=== PATIENT | female | born 1960 | race Caucasian/White ===

== ENCOUNTER → 2018-02-20 | Outpatient (CLI) | payer OTHER ==
[~2018-02-20] MED LIST: ASA81 MG; COZAAR50 MG; CRESTOR10 MG; TOPROL XL25 M1; VOLTAREN100 GM TP
== END | disposition home or self-care (01) ==
LOC: RAD 10:58
DX: M17.0 Bilateral primary osteoarthritis of knee (principal)

== ENCOUNTER 2021-05-09 11:31 | Outpatient (CLI) | payer OTHER | END 2021-05-09 11:35 | disposition home or self-care (01) | LOC: RAD 11:31 | PROVIDERS: ATTEND Physical Medicine & Rehabilitation | DX: M62.830 Muscle spasm of back (principal) ==

== ENCOUNTER 2025-01-04 13:09 | Outpatient (CLI) | payer OTHER | END 2025-01-04 13:13 | disposition home or self-care (01) | LOC: SONOGRAMA 13:09 | PROVIDERS: ATTEND Internal Medicine Gastroenterology | DX: R10.9 Unspecified abdominal pain (principal) ==

== ENCOUNTER 2025-04-13 08:13 | Outpatient (CLI) | payer OTHER | END 2025-04-13 08:24 | disposition home or self-care (01) | LOC: SONOGRAMA 08:13 | PROVIDERS: ATTEND Internal Medicine Gastroenterology | DX: J18.0 Bronchopneumonia, unspecified organism (principal); K82.4 Cholesterolosis of gallbladder ==